=== PATIENT | male | born 1955 | race Caucasian/White ===

== ENCOUNTER 2017-11-27 22:03 | Emergency (ER) | payer OTHER ==
[~2017-11-27] VITALS: Ht 177.8 cm; Wt 110.7 kg
[2017-11-27 22:05] VITALS: BP 168/105
--- NOTE | 2017-11-27 22:05 | NUR ---
PATIENT TRIAGED. VSS STABLE. SENT TO ER LOBBY.
--- NOTE | 2017-11-28 00:51 | NUR ---
PT TAKEN TO BED 5
--- NOTE | 2017-11-28 00:51 | NUR ---
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 PT ALSO REPORTS DISCOMFORT TO RUQ ABD X 1 MONTH. DENIES SOB/CP AT THIS TIME, SKIN IS WARM AND DRY. NO RESPIRATORY DISTRESS NOTED AT THIS TIME. ALL LUNG SOUNDS CBTA, 18RR EVEN AND UNLABORED. HEART SOUNDS NORMAL. ABD SOFT, ROUND, -TENDERNESS, BS ACTIVE X4. DENIES N/V, FEVER/CHILLS. PMH: MD (2014), STENT, DM, HTN
--- NOTE | 2017-11-28 01:40 | NUR ---
Dr. Donnelly evaluating patient at bedside.
[2017-11-28] MEDS ORDERED: NACL 0.9% 1,000 ML IV SCH (02:56)
--- NOTE | 2017-11-28 03:16 | NUR ---
X-Ray at bedside.
[2017-11-28 03:45] LABS: APPEARANCE,URINE CLEAR (CLEAR); BILIRUBIN,URINE NEGATIVE (NEGATIVE); BLOOD, URINE NEGATIVE (NEGATIVE); COLOR,URINE YELLOW (YELLOW); LEUKOCYTE ESTERASE ,URINE NEGATIVE (NEGATIVE); NITRITE, URINE NEGATIVE (NEGATIVE); UGLUCOSE NEGATIVE (NEGATIVE)
[2017-11-28 03:46] LABS: BASOPHILS # (AUTO) 0.2 K/uL (0.00-0.22); BASOPHILS % (AUTO) 1.2 % (0.0-2.0); EOSINOPHILS # (AUTO) 0.2 K/uL (0-0.4); EOSINOPHILS % (AUTO) 1.7 % (0.0-4.0); HEMATOCRIT 51.9 % (36-52); HEMOGLOBIN 17.3 g/dL (12.0-18.0); LYMPHOCYTES # (AUTO) 4.7 K/uL (2.0-11.5); LYMPHOCYTES % (AUTO) 35.5 % (20.5-51.1); MEAN CORPUSCULAR HEMOGLOBIN 30 pg (27-31); MEAN CORPUSCULAR HGB CONC 33 g/dL (33-37); MEAN CORPUSCULAR VOLUME 89.2 fL (80-94); MONOCYTES # (AUTO) 0.8 K/uL (0.8-1.0); MONOCYTES % (AUTO) 6.1 % (1.7-9.3); NEUTROPHILS # (AUTO) 7.3 K/uL (1.8-7.7); NEUTROPHILS % (AUTO) 55.5 % (42.2-75.2); PLATELET COUNT (AUTO) 232 K/uL (140-450); RED BLOOD CELL COUNT(AUTO) 5.82 MIL/uL (4.20-6.10); RED CELL DISTRIBUTION WIDTH 13.8 % (11.6-13.7); WHITE BLOOD COUNT (AUTO) 13.2 K/uL (4.8-10.8)
--- NOTE | 2017-11-28 03:48 | NUR ---
Ultrasound at bedside.
[2017-11-28 04:06] LABS: RBC,URINE 0-5 (RARE) /HPF (0-5); WBC,URINE 0-5 (RARE) /HPF (0-5)
[2017-11-28 04:12] LABS: ANION GAP 12.4 (8-16); CARBON DIOXIDE 26.1 mmol/L (21-32); CREATININE 1.1 mg/dL (0.7-1.3); POTASSIUM 4.5 mmol/L (3.5-5.1)
[2017-11-28 04:16] LABS: ALBUMIN 3.9 g/dL (3.4-5.0); TOTAL BILIRUBIN 0.6 mg/dL (0.0-1.0)
--- NOTE | 2017-11-28 04:55 | NUR ---
AWAITING DISCHARGE DISPOSITION FROM DR FAULKNER.
--- NOTE | 2017-11-28 05:27 | NUR ---
Patient discharged with v/s stable. Written and verbal after care instructions given and explained. Patient alert, oriented and verbalized understanding of instructions. Ambulatory with steady gait. All questions addressed prior to discharge. ID band removed. Patient advised to follow up with PMD. Rx of REGLAN AND PEPCID given. Patient educated on indication of medication including possible reaction and side effects. Opportunity to ask questions provided and answered.
[2017-11-28 05:30] VITALS: BP 142/80
== END 2017-11-28 05:27 | disposition home or self-care (01) ==
LOC: MED 22:03
DX: K29.70 Gastritis, unspecified, without bleeding (principal); K21.9 Gastro-esophageal reflux disease without esophagitis; E11.9 Type 2 diabetes mellitus without complications; I10 Essential (primary) hypertension; I25.2 Old myocardial infarction
CPT/HCPCS: 36415; 71045; 76705; 80053; 81001; 83690; 84484; 85025; 93005; 99285; Q0092